=== PATIENT | male | born 1970 | race Caucasian/White ===

== ENCOUNTER 2021-01-17 13:17 | Emergency (ER) | payer OTHER, SELFPAY ==
--- NOTE | ~2021-01-17 | XR_ITS ---
EXAMINATION: XR ankle LT min 3V DATE: 01/17/2021 14:04 INDICATION: Left ankle pain post fall TECHNIQUE: Anteroposterior, oblique, mortise, and lateral views of the left ankle were obtained. COMPARISON: None. FINDINGS: Alignment is normal. No fracture. Joint spaces are well maintained. No ankle joint effusion. Tiny e nthesopathic ossicle at the calcaneal insertion of the distal Achilles tendon. Additional small enthe sophytes at the dorsal aspect of the navicula and at the tip of the lateral malleolus. The soft tissu es are unremarkable. IMPRESSION: 1. No left ankle joint effusion or acute osseous abnormality. Reviewed, dictated and finalized at location A.
--- NOTE | ~2021-01-17 | XR_ITS ---
EXAMINATION: XR ribs LT 2V w CXR 2V DATE: 01/17/2021 14:04 INDICATION: Lateral left rib pain post fall TECHNIQUE: PA and lateral views of the chest and 3 views of the left ribs were obtained. COMPARISON: Chest radiograph dated 06/06/2011 FINDINGS: Irregular cortical contour at the anterior margins of the left 10th and 11th ribs which can be a norm al finding but could not exclude nondisplaced rib fracture. No other lesions suspicious for left-side d rib fractures identified. Chronic fractures of the anterolateral right third and fifth and anterior right eighth ribs. Table appearance of chronic streaky and irregular linear opacities at the lateral right upper lung zone and at the bilateral lower lung zones. No new airspace opacities, pulmonary ed michael, pleural effusion or pneumothorax. Cardiomediastinal silhouette is normal. IMPRESSION: 1. Cortical irregularity at the anterior ends of the left 10th and 11th ribs equivocal for nondisplac ed fractures. Correlate for point tenderness at this location. 2. Stable appearance of chronic streaky and irregular linear opacities at the right upper and bilater al lower lung zones which could represent atelectasis/scarring or chronic interstitial lung disease. Reviewed, dictated and finalized at location A. IMPRESSION: 1. Cortical irregularity at the anterior ends of the left 10th and 11th ribs eq uivocal for nondisplaced fractures. Correlate for point tenderness at this loca tion. 2. Stable appearance of chronic streaky and irregular linear opacities at the r ight upper and bilateral lower lung zones which could represent atelectasis/sca rring or chronic interstitial lung disease.
--- NOTE | ~2021-01-17 | CT_ITS ---
EXAMINATION: CT lumbar spine wo con DATE: 01/17/2021 13:48 INDICATION: Low back pain post fall TECHNIQUE: Computed tomography (CT) of the lumbar spine was performed without intravenous contrast. A utomated exposure control and iterative reconstruction technique were employed. The dose-length produ ct was 598.65 mGy-cm. COMPARISON: None FINDINGS: 1-2 mm retrolisthesis L2 on L3. Alignment is otherwise normal.. Vertebral body heights are normal. No fracture or pars interarticularis defects. Mild left-sided disc height loss with vacuum phenomena at L4-L5. Remaining disc heights are relatively preserved. Respiratory motion and minimal atelectasis a t the posterior sulci of the lateral lower lobes. There is calcified atherosclerosis of the aorta and many of the other arteries. Paravertebral soft tissues are otherwise unremarkable. The following dis c levels are specifically discussed: T11-T12: The disc does not extend beyond the endplate margin. There is mild bilateral facet joint ost eoarthritis. There is no neural foraminal stenosis. There is no central canal stenosis. T12-L1: The disc does not extend beyond the endplate margin. There is mild left and minimal right fac et joint osteoarthritis. There is no neural foraminal stenosis. There is no central canal stenosis. L1-L2: Disc is mildly bulging. There is mild bilateral facet joint osteoarthritis. There is no neural foraminal stenosis. There is no central canal stenosis. L2-L3: Disc is mildly bulging. There is mild left facet joint osteoarthritis. There is mild bilateral neural foraminal stenosis. There is mild central canal stenosis. L3-L4: Disc is mildly bulging, eccentric to the right. There is mild bilateral facet joint osteoarthr itis. There is mild to moderate right and mild left neural foraminal stenosis. There is mild central canal stenosis. L4-L5: Disc is bulging, eccentric to the right. There is mild right and minimal left facet joint oste oarthritis. There is mild left and moderate right neural foraminal stenosis. There is mild central ca nal stenosis. L5-S1: Disc is bulging with small inferior endplate osteophyte. There is old bilateral, right greater than left facet joint osteoarthritis. There is mild bilateral neural foraminal stenosis. There is mi nimal central canal stenosis. IMPRESSION: 1. Mild lumbar spondylosis. No acute osseous abnormality. Reviewed, dictated and finalized at location A.
--- NOTE | ~2021-01-17 | XR_ITS ---
EXAMINATION: XR knee LT min 4V DATE: 01/17/2021 14:04 INDICATION: Left knee pain post fall TECHNIQUE: Anteroposterior, 2 oblique and crosstable lateral views of the left knee were obtained COMPARISON: None. FINDINGS: Alignment is normal. No fracture. Joint spaces appear normal on nonweightbearing imaging. No joint e ffusion/layering lipohemarthrosis. Soft tissues are unremarkable. IMPRESSION: 1. Negative left knee radiographs. Reviewed, dictated and finalized at location A.
--- NOTE | ~2021-01-17 | XR_ITS ---
EXAMINATION: XR ankle RT min 3V DATE: 01/17/2021 14:04 INDICATION: Right ankle pain post fall 2 weeks prior. TECHNIQUE: Anteroposterior, oblique, mortise, and lateral views of the right ankle were obtained. COMPARISON: None. FINDINGS: Postoperative changes in the right foot. This includes a realignment osteotomy at the posterior calca juan body with lateral plate and screw fixation. There also appears to be arthrodesis across the firs t and second tarsal metatarsal joints fixed with a medial sided plate and screw and a couple addition al screws. There are additional screws at the second, fourth and fifth toes, potentially for addition al interphalangeal joint arthrodeses, assessment of which is limited by the plantar projection with f oreshortening of the toes. Normal alignment with mild polyarticular osteoarthritis at the right ankle and hindfoot. No acute fra cture. Soft tissues are unremarkable with no right ankle joint effusion or soft tissue swelling about the medial or lateral malleoli. Small Achilles and plantar calcaneal spurs. IMPRESSION: 1. No right ankle joint effusion or acute osseous abnormality. 2. Postoperative changes throughout the right foot as detailed above. Reviewed, dictated and finalized at location A.
--- NOTE | ~2021-01-17 | XR_ITS ---
EXAMINATION: XR shoulder LT min 2V DATE: 01/17/2021 14:04 INDICATION: Left shoulder pain. Fall. TECHNIQUE: 4 views of left shoulder were obtained. COMPARISON: None. FINDINGS: Bone alignment is normal. No fracture. The glenohumeral joint is normal. There is mild acro mioclavicular joint osteoarthritis. IMPRESSION: 1. Mild left acromioclavicular joint osteoarthritis. Reviewed, dictated and finalized at location A.
[2021-01-17 13:25] VITALS: BP 127/89; PULSE 82; RESP 20; TEMP 36.8; O2SAT 96
--- NOTE | 2021-01-17 13:41 | ED.FALL ---
HPI - Fall General Chief Complaint: Fall Stated Complaint: fall 2 days ago Time Seen by Provider: 01/17/21 13:28 Source: patient Mode of arrival: ambulatory Limitations: no limitations History of Present Illness HPI Narrative: This is a 50 year old male that presents to the ER after a fall 2 days ago. Reports he was up on a tire helping his son fix his car. Reports he fell and slid down the tire onto the floor. Reports since he has had pain in his ankles, the left side of his ribs, low back, left knee and left shoulder. Denies hitting his head or loss of consciousness. Denies vision changes, vomiting, numbness, or weakness. Related Data Allergies Allergy/AdvReac Type Severity Reaction Status Date / Time codeine Allergy Severe SOB, NECK Verified 01/17/21 13:33 AND HANDS SWELLING, RASH Penicillins Allergy Intermediate RASH Verified 01/17/21 13:33 Review of Systems Review of Systems: CONSTITUTIONAL: Denies fever EYES: Denies visual changes CARDIOVASCULAR: Reports chest/rib pain RESPIRATORY: Denies dyspnea. GASTROINTESTINAL: Denies vomiting MUSCULOSKELETAL: Reports back pain, joint pain, and myalgia. NEUROLOGIC: Denies numbness, or weakness. All systems reviewed & are unremarkable except as noted in HPI and below PMFSH Past Medical History Medical History (Updated 01/17/21 @ 15:50 by Krystal Rao PA-C) History of chronic obstructive pulmonary disease History of depression History of hypertension Exam Narrative: GENERAL: Well-appearing, well-nourished, and in no acute distress. HEAD: Normocephalic, atraumatic. EYES: PERRLA and EOMI. ENT: Nares clear, no rhinorrhea or epistaxis. Mucous membranes moist. Oropharynx without tonsillar hypertrophy exudate or other lesions. Bilateral TMs pearly philip non-bulging NECK: Supple. No adenopathy or masses. No midline cervical spine tenderness CHEST: Clear to auscultation. No respiratory distress. No wheezes rales or rhonchi. Tender to palpation of the left, lateral lower chest wall HEART: Regular rate and rhythm. No murmur heard. Normal peripheral pulses. ABDOMEN: Soft, nontender, nondistended, normal active bowel sounds. BACK: No midline thoracic spine tenderness. Tender to palpation of midline lumbar spine EXTREMITIES: Normal range of motion. No edema or obvious deformity. Normal sensation SKIN: Warm, dry, no rash. NEURO: No focal deficits. Alert and oriented x3. Cranial nerves II through XII grossly intact PSYCH: Normal mood and affect Course Vital Signs Vital signs: Vital Signs Temperature 98.2 F 01/17/21 13:25 Pulse Rate 82 01/17/21 13:25 Respiratory Rate 20 01/17/21 13:25 Blood Pressure 127/89 01/17/21 13:25 Pulse Oximetry 96 01/17/21 13:25 Temperature 98.2 F 01/17/21 13:25 Pulse Rate 76 01/17/21 15:33 Respiratory Rate 20 01/17/21 15:33 Blood Pressure 112/64 01/17/21 15:33 Pulse Oximetry 97 01/17/21 15:33 MDM - Fall MDM Narrative Medical decision making narrative: Patient presents emergency department after a fall 2 days ago with left knee, left shoulder, bilateral ankle, left sided ribs and low back pain. Patient's vitals are stable. He is neurologically intact. Left rib/chest x-ray shows acute 10th and 11th rib fractures which are nondisplaced. CT scan lumbar spine is without acute osseous abnormalities. Ankle x-rays are without acute osseous abnormalities. Left knee and shoulder x-rays are also without acute osseous abnormalities. Patient was updated on case findings. He was given an incentive spirometer instructed discharge on care of rib fracture. He is to follow-up with primary care doctor. He was given warnings to return to the ER Imaging Data Radiologist's impression: ITS Impressions Lumbar Spine CT 01/17/21 14:13 IMPRESSION: 1. Mild lumbar spondylosis. No acute osseous abnormality. Ankle X-Ray 01/17/21 14:24 IMPRESSION: 1. No left ankle joint effusion or acute osseous abnormality.
[2021-01-17] MEDS: HYDROcodone/acetaminophen (*CRX) 5-325 MG TABLET 1 TAB PO (14:16)
[2021-01-17 14:21] VITALS: BP 98/74; PULSE 81; RESP 20; O2SAT 97
[2021-01-17 14:41] VITALS: BP 105/68; PULSE 73; RESP 20; O2SAT 96
[2021-01-17 15:33] VITALS: BP 112/64; PULSE 76; RESP 20; O2SAT 97
[2021-01-17 16:18] VITALS: BP 117/78; PULSE 65; RESP 20; O2SAT 95
[2021-01-17 16:25] VITALS: BP 117/78; PULSE 65; RESP 20; O2SAT 100
== END 2021-01-17 16:27 | disposition home or self-care (01) ==
PROVIDERS: Emergency Provider Emergency Medicine; PCP Physician Assistant
DX: S22.42XA Multiple fractures of ribs, left side, initial encounter for closed fracture (principal); J44.9 Chronic obstructive pulmonary disease, unspecified; I10 Essential (primary) hypertension; M47.816 Spondylosis without myelopathy or radiculopathy, lumbar region; M19.012 Primary osteoarthritis, left shoulder; W17.89XA Other fall from one level to another, initial encounter
CPT/HCPCS: 71046; 71100; 72131; 73030; 73564; 73610; 99284; A9270